=== PATIENT | female | born 1945 | race Caucasian/White ===

== ENCOUNTER → 2020-08-23 09:52 | Outpatient (CLI) | payer OTHER, SELFPAY ==
--- NOTE | ~2020-08-23 | MR_ITS ---
EXAMINATION: MR lumbar spine wo con EXAM DATE: 08/23/2020 10:39 INDICATION: Lumbar radiculopathy, pain. TECHNIQUE: Multi-sequential, multiplanar MR images of the lumbar spine were obtained without contrast . Sagittal T1, T2, T2 fat saturation images. Axial T2 weighted images. There is no prior study for comparison. FINDINGS: There is an L1 mild to moderate burst fracture with about 4 mm retropulsion of the superior endplate. There is mild edema indicating that this could be acute or subacute, or have an acute or s ubacute refracture. There is chronic compression fracture of T11 with mild to moderate loss of this v ertebral body height centrally. Scattered vertebral body hemangiomas. Paraspinal soft tissue is unrem arkable. The conus medullaris terminates at the L1/2 level and has normal signal intensity and morpho logy. There is 3 mm retrolisthesis L3 on L4, 6 mm anterolisthesis L4 on L5. No spondylolysis suspect ed. Level by level evaluation: T11-12: There is a mild diffuse disc bulge. Facet arthropathy: Mild. Neural foraminal stenosis: No stenosis. Central canal stenosis: No stenosis. T12-L1: There is a mild to moderate diffuse disc bulge. Facet arthropathy: Mild. Neural foraminal stenosis: Mild to moderate right. Central canal stenosis: Mild. L1-L2: There is a mild diffuse disc bulge. Facet arthropathy: Mild. Neural foraminal stenosis: No stenosis. Central canal stenosis: No stenosis. L2-L3: There is a mild to moderate diffuse disc bulge. Facet arthropathy: Mild to moderate. Neural foraminal stenosis: Mild bilateral. Central canal stenosis: Mild. L3-L4: There is a mild to moderate diffuse disc bulge. Facet arthropathy: Mild to moderate. Neural foraminal stenosis: Moderate left, mild to moderate right. Central canal stenosis: Mild. L4-L5: There is a moderate diffuse disc bulge. Facet arthropathy: Severe . Ligamentum flavum enlargement. Neural foraminal stenosis: Moderate bilateral. Central canal stenosis: Severe. L5-S1: There is a mild to moderate diffuse disc bulge. Facet arthropathy: Severe right, moderate left. Neural foraminal stenosis: Mild bilateral. Central canal stenosis: Mild. IMPRESSION: 1. L1 mild to moderate burst fracture with mild edema and mild retropulsion. Acute or subacute. 2. L4-5 grade 2 anterolisthesis, severe arthropathy and central canal stenosis. 3. Lesser spondylosis above. Reviewed, dictated and finalized at location A. [employer] IMPRESSION: 1. L1 mild to moderate burst fracture with mild edema and mild retropulsion. A cute or subacute. 2. L4-5 grade 2 anterolisthesis, severe arthropathy and central canal stenosis . 3. Lesser spondylosis above.
== END ==
PROVIDERS: PCP Internal Medicine; Visit Provider Nurse Practitioner Family
DX: M47.25 Other spondylosis with radiculopathy, thoracolumbar region (principal); S32.011A Stable burst fracture of first lumbar vertebra, initial encounter for closed fracture; M48.05 Spinal stenosis, thoracolumbar region; M47.27 Other spondylosis with radiculopathy, lumbosacral region; M48.07 Spinal stenosis, lumbosacral region
CPT/HCPCS: 72148